=== PATIENT | male | born 1945 | race Caucasian/White ===

== ENCOUNTER 2025-08-02 05:57 | Observation (INO) ==
--- NOTE | 2025-08-02 06:13 | Emergency Department Note ---
Impression & Plan Dizziness, HTN (hypertension), Blood glucose elevated ED Provider Note NAME: ANDRES JORGENSEN AGE: 80 SEX: M : 1945 ARRIVES VIA: Walk-In INFORMANT: Patient ED PROVIDER(S): Conner Velazquez DO CHIEF COMPLAINT: Dizzy HPI: Patient is an 80-year-old male who presents to the ER for dizziness. Family present at bedside and provides additional history and notes that this started at 3 AM when he got up out of bed. Patient notes that it has been constant since then. Does not change with positions. He denies any chest pain or shortness of breath preceding or following this incident. He does admit to some cramping in the legs and believes that he is dehydrated. No belly pain. No nausea, vomiting or diarrhea. No dysuria, urgency or frequency. No other exacerbating or remitting factors that he can think of. He notes he still is dizzy at this time. He also still has some intermittent leg cramping bilaterally. ADDITIONAL HISTORY OBTAINED: Per HPI Chronic Medical/Social Conditions Affecting Care: Per HPI PAST MEDICAL HISTORY:See Below PAST SURGICAL HISTORY:See Below FAMILY HISTORY:See Below SOCIAL HISTORY:See Below HOME MEDICATIONS:See Below ALLERGIES:See Below VITALS:See Below PHYSICAL EXAMINATION: GENERAL: Sitting up in bed, alert, well appearing, well nourished, no distress, non-toxic EYE EXAM: normal conjunctiva. PERRL and EOM's intact. OROPHARYNX: no exudate, no erythema, lips, buccal mucosa, and tongue normal and mucous membranes are moist NECK: supple, no nuchal rigidity, no adenopathy, non-tender LUNGS: Clear to auscultation. Normal chest wall mechanics HEART: no murmurs, S1 normal and S2 normal ABDOMEN: abdomen soft, non-tender, normo-active bowel sounds, no masses, no rebound or guarding. BACK: Back is symmetrical on inspection and there is no deformity, no midline tenderness, no CVA tenderness. SKIN: no rashes and no bruising UPPER EXTREMITIES: upper extremities are grossly normal. LOWER EXTREMITIES: No pitting edema. NEURO EXAM: Normal sensorium, cranial nerves II-XII intact, normal speech, no weakness of arms, no weakness of legs. No drift. Finger to nose intact. Gross sensation intact. MEDICAL DECISION MAKING: Patient is an 80-year-old male who presents to the ER for dizziness. IV was established and blood work is obtained. Patient is neurologically intact but does have trouble ambulating. Labs show mild leukocytosis of 11,000. No significant anemia. BMP with mild hyponatremia 133. LFTs bilirubin and troponin was negative. Lipase was normal. UA was clean. Chest x-ray question some vascular congestion. CTAs as well as Noncon of the head showed some carotid stenosis. With this finding [facility] Patient was given IV fluids oral aspirin and Antivert while in the ER. Symptoms improved significantly. Dr. Trotter recommended admission aspirin and MRIs. Patient was updated at bedside. Discussed case with hospitalist for further evaluation management treatment. Consults/Care Managements Discussions: Per [facility] Triage Nursing notes reviewed. Limited review of prior medical records performed Vital Signs: reviewed and remarkable for HTN Differential diagnosis: Differential diagnosis includes etiologies such as benign positional vertigo, dehydration, hypovolemia, anemia, tumor, infection, hypoglycemia, electrolyte abnormalities, cardiac sources, intracerebral event, toxicologic, neurological, as well as others were entertained. ER treatment provided: See below Diagnostics interpreted by me include EKG and cardiac monitoring as listed below: -Cardiac Monitoring: An order was placed for continuous cardiac monitoring. The monitor shows a rate of 70 with sinus rhythm. -ECG: Sinus rhythm rate of 70 Normal axis No PVCs QTc 460 -Laboratory studies:Interpreted by me as stated above in MDM and shown below. Imaging studies: Xrays: As interpreted by me: Portable AP upright 1 view of the chest shows no focal M-Trate CTs show: CTs as described above Procedures:none Critical Care: None Past Med/Surg History Problem List (Updated 08/02/25 @ 10:35 by Delilah Carvajal PA-C) Cramp in lower leg associated with rest Hypertension Dizziness Social History Smoking Status: Former smoker Preferred Language: Moldovan Feels Safe at Home: Yes Allergies Allergies Allergy/AdvReac Type Severity Reaction Status Date / Time No Known Allergies Allergy Unverified 08/02/25 09:24 Home Meds Home Medications Medication Instructions Recorded Confirmed amlodipine 10 mg tablet 10 mg PO DAILY 08/02/25 08/02/25 latanoprost 0.005 % eye drops 1 drp ophthalmic (eye) QPM 08/02/25 08/02/25 (Xalatan) timolol maleate 0.5 % eye drops 1 drp ophthalmic (eye) QAM 08/02/25 08/02/25 Results & Data (ED) Vital Signs Vital Signs - 24 hr 08/02/25 06:00 08/02/25 06:21 08/02/25 06:32 Temperature 36.6 C Temperature Source Temporal Artery Scan Pulse Rate 71 68 60 Pulse Rate [Apical] Pulse Rhythm Regular Pulse Rhythm [Apical] Pulse Strength [Apical] Respiratory Rate 18 11 L Respiratory Effort / Characteristics Respiratory Depth Normal Respiratory Pattern Blood Pressure 177/84 H Blood Pressure [Right Arm] Blood Pressure Mean 115 Blood Pressure Mean [Right Arm] Blood Pressure Position [Right Arm] Pulse Oximetry 99 95 Oxygen Delivery Method Room Air Room Air Sepsis Recent Fever Within 48 Hours No Sepsis New/Unexplained Change in Mental Status N/A Sepsis Action Taken by Nursing No Action Required 08/02/25 06:37 08/02/25 07:00 08/02/25 09:00 Temperature Temperature Source Pulse Rate Pulse Rate [Apical] 62 70 66 Pulse Rhythm Pulse Rhythm [Apical] Regular Regular Regular Pulse Strength [Apical] Normal Respiratory Rate 13 14 15 Respiratory Effort / Characteristics Non-Labored Non-Labored Non-Labored Spontaneous Respiratory Depth Normal Normal Normal Respiratory Pattern Regular Regular Regular Blood Pressure Blood Pressure [Right Arm] 170/85 H 187/92 H 162/96 H Blood Pressure Mean Blood Pressure Mean [Right Arm] 113 123 118 Blood Pressure Position [Right Arm] Lying Pulse Oximetry 95 98 97 Oxygen Delivery Method Room Air Room Air Room Air Sepsis Recent Fever Within 48 Hours Sepsis New/Unexplained Change in Mental Status Sepsis Action Taken by Nursing 08/02/25 10:02 08/02/25 10:23 Temperature Temperature Source Pulse Rate 80 Pulse Rate [Apical] 72 Pulse Rhythm Pulse Rhythm [Apical] Pulse Strength [Apical] Respiratory Rate 20 Respiratory Effort / Characteristics Non-Labored Respiratory Depth Normal Respiratory Pattern Blood Pressure Blood Pressure [Right Arm] 175/96 H Blood Pressure Mean Blood Pressure Mean [Right Arm] 122 Blood Pressure Position [Right Arm] Pulse Oximetry 95 Oxygen Delivery Method Room Air Sepsis Recent Fever Within 48 Hours Sepsis New/Unexplained Change in Mental Status Sepsis Action Taken by Nursing Laboratory Data 08/02/25 06:13 08/02/25 06:13 Lab Results 08/02/25 08/02/25 08/02/25 Range/Units 06:13 06:16 Unknown WBC 11.59 H (4.8-10.8) K/ul RBC 5.03 (4.70-6.10) M/uL Hgb 15.0 (14.0-18.0) g/dl POC Hgb 16.0 (14.0-18.0) g/dl Hct 44.1 (42.0-52.0) % POC Hct 47 (42-52) % MCV 87.7 (80.0-100.0) fL MCH 29.8 (25.0-34.0) pg MCHC 34.0 (32.0-36.0) g/dL RDW Std Deviation 39.3 (36.4-46.3) fL RDW Coeff of Jennifer 12.3 (11.5-14.5) % Plt Count 205 (130-400) K/uL MPV 9.4 (9.4-12.4) fL Immature Gran % (Auto) 0.8 % Neut % (Auto) 63.3 % Lymph % (Auto) 28.0 % [place] % (Auto) 6.6 % Eos % (Auto) 1.1 % Baso % (Auto) 0.2 % Neut # (Auto) 7.34 H (1.40-6.50) K/uL Lymph # (Auto) 3.24 (1.20-3.40) K/uL [place] # (Auto) 0.77 H (0.11-0.59) K/uL Eos # (Auto) 0.13 (0.00-0.50) K/uL Baso # (Auto) 0.02 (0.00-0.20) K/uL Immature Gran # (Auto) 0.09 (0.01-0.20) K/uL POC Sodium 134 L (135-144) mmol/L Sodium 133 L (136-145) mmol/L POC Potassium 3.5 (3.3-5.0) mmol/L Potassium 3.5 (3.5-5.1) mmol/L POC Chloride 98 L (101-112) mmol/L Chloride 98 (98-107) mmol/L Carbon Dioxide 26 (21-32) mmol/L POC Total CO2 24 (24-31) mmol/L Anion Gap 9 (3-11) POC Anion Gap 16.0 (16-25) mmol/L POC BUN 23 H (7-18) mg/dl BUN 22 (6-23) mg/dl Creatinine 0.92 (0.6-1.4) mg/dl POC Creatinine 1.0 (0.6-1.3) mg/dl Est Cr Clr Drug Dosing Not Reportable eGFR 84.09 BUN/Creatinine Ratio 23.9 H (10-20) Glucose 164 H (70-99(Fasting)) mg/dl POC Glucose (other) 165 H (70-99) mg/dl Calcium 9.3 (8.6-10.3) mg/dl POC Ioniz Calcium Herbert 1.12 (1.12-1.32) mmol/l Magnesium 2.0 (1.7-2.4) mg/dl Total Bilirubin 0.4 (0.2-1.0) mg/dl AST 17 (13-39) U/L ALT 11 (7-52) U/L Alkaline Phosphatase 82 (34-104) U/L Troponin I High Sens 6.1 (0-20) pg/ml Total Protein 8.0 (6.0-8.3) gm/dl Albumin 4.5 (3.4-5.0) gm/dl Globulin 3.5 (2.5-4.0) gm/dl Albumin/Globulin Ratio 1.3 (0.9-2) Lipase 33 (11-82) U/L Urine Color Yellow Urine Appearance Clear (Clear) Urine pH 8.0 H (4.5-7.5) Ur Specific [place] 1.028 (1.000-1.030) Urine Protein Negative (Negative) Urine Glucose (UA) Negative (Negative) Urine Ketones Negative (Negative) Urine Blood Negative (Negative) Urine Nitrite Negative (Negative) Urine Bilirubin Negative (Negative) Urine Urobilinogen Negative (Negative) Ur Leukocyte Esterase Negative (Negative) Urine Comment Administered Medications Discontinued Medications Sodium Chloride (Nss) 1,000 mls @ 999 mls/hr IV .Q1H1M ONE Stop: 08/02/25 07:10 Last Infusion: 08/02/25 07:33 Dose: Infused Documented By: Admin: 08/02/25 06:14 Dose: 999 mls/hr Documented By: pamela Ioversol (Optiray 320 125ml) 120 ml IV ONCE ONE Stop: 08/02/25 06:43 Last Admin: 08/02/25 06:43 Dose: 120 ml Documented By: MAYRA Meclizine HCl (Meclizine Hcl 25 Mg Tab) 25 mg PO NOW STA Stop: 08/02/25 06:11 Last Admin: 08/02/25 06:14 Dose: 25 mg Documented By: lcd Imaging Data Radiologist's Impression: Chest X-Ray 08/02/25 06:05 EXAM: XR chest 1V portable CLINICAL HISTORY: Chest pain, nonspecific. TECHNIQUE: An X-ray image of the chest was obtained in the AP projection. COMPARISON: No prior studies are available for comparison. FINDINGS: Pulmonary Parenchyma: Bilateral prominent interstitial markings with hazy parenchyma and congested vasculature are present, presenting a picture suggestive of possible parenchymal disease, congestion, or edema, mainly in the lower zones bilaterally. There is no evidence of consolidation, collapse, or focal opacities. There is faint obliteration of the left CP angle, which could be due to basal atelectatic changes or pleural thickening. There is no evidence of pleural effusion or pleural thickening on the right side. Heart and Mediastinum: Cardiomegaly is present. There is no mediastinal widening or masses. There is no hilar or mediastinal lymphadenopathy. Bony Thorax: The bony thorax appears intact, without fractures or deformities. Sternotomy wires are noted. Soft Tissues: The soft tissues overlying the chest wall are unremarkable. IMPRESSION: 1. There are bilateral signs of pulmonary congestion or edema. 2. Another possibility is an atypical infectious process. 3. There is faint obliteration of the left CP angle, which could be due to basal atelectatic changes or pleural thickening. Electronically signed by Filipe Colby 08-02-2025 07:41 AM Head CTA 08/02/25 06:10 EXAM: CT angio head wo/w CLINICAL HISTORY: Dizzy. TECHNIQUE: Axial CT angiography of the head was performed without and with contrast, as well as sagittal and coronal reformats with MIP reconstructions. One of the following 3D techniques was utilized: Maximum Intensity Projection (MIP), 3D Reconstructed Images, Volume Rendered Images, or Surface Shaded Rendering. One of the following dose reduction techniques was utilized for this exam: automated exposure control, adjustment of the mA and/or kV according to patient size, or use of iterative reconstruction. DLP: 1160 mGy-cm, CTDI: 70 mGy. COMPARISON: None. FINDINGS: Intracranial Arteries: The intracranial portions of the internal carotid arteries, anterior cerebral arteries, middle cerebral arteries, posterior cerebral arteries, basilar artery, and vertebral arteries are well opacified. There is no evidence of aneurysm, stenosis, or occlusion. There are no significant atherosclerotic changes. There are mild atherosclerotic calcifications at both ICA siphons. [place]: The [place] is complete. There is normal caliber of the communicating arteries. There are no vascular malformations or aneurysms. Venous Structures: There is normal opacification of the major dural venous sinuses. There is no evidence of venous sinus thrombosis. Brain Parenchyma: There is mild accentuation of periventricular white matter hypodensity, suggesting chronic white matter ischemic changes. Otherwise, there is normal attenuation of the cerebral hemispheres, cerebellum, and brainstem. There is no evidence of acute infarct, hemorrhage, or mass effect. The sulci and fissures are prominent. Ventricular System: The ventricles are prominent. There is no evidence of hydrocephalus or ventricular enlargement. Skull and Meninges: There is normal appearance of the skull. There is no evidence of meningeal enhancement or thickening. Orbits: There is normal appearance of the globes, optic nerves, and extraocular muscles. There is no evidence of orbital masses or abnormal signal. IMPRESSION: 1. Normal CT angiography of the head. 2. There is no evidence of significant vascular abnormalities. There are no major vessel occlusions. 3. There are mild atherosclerotic calcifications at both ICA siphons. 4. There are age-related involutional brain changes. 5. 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 6. There is no acute hemorrhage or infarct. Electronically signed by Filipe Colby 08-02-2025 08:03 AM Neck CTA 08/02/25 06:10 EXAM: CT angio neck with con CLINICAL HISTORY: Dizzy TECHNIQUE: CT angiography study of the neck vessels with IV contrast was performed, and multiple axial sections were obtained with coronal and sagittal reconstructions. 120 cc Optiray 320 was administered. CTDI: mGy, DLP: mGy*cm. One of the following dose reduction techniques was utilized for this exam: automated exposure control, adjustment of the mA and/or kV according to patient size, and use of iterative reconstruction. One of these 3D techniques was utilized: maximum intensity pixel (MIP), 3D reconstructed images, volume-rendered images, or surface-shaded rendering. COMPARISON: None. FINDINGS: Carotid Arteries: The common carotid arteries, internal carotid arteries, and external carotid arteries bilaterally are well opacified. Atherosclerotic calcific plaques at the right carotid bulb are causing significant narrowing at the origin of the right internal carotid artery (about 75% stenosis); however, distally, the vessel is patent with normal contrast opacification. Mild atherosclerotic calcific plaques at the left carotid bulb are present with no significant narrowing. No evidence of significant aneurysm. Vertebral Arteries: The vertebral arteries bilaterally are well opacified. There is no evidence of significant stenosis, occlusion, or aneurysm. No significant atherosclerotic changes are noted. Jugular Veins: There is normal opacification of the internal and external jugular veins bilaterally. There is no evidence of thrombosis or compression. Subclavian Arteries: The subclavian arteries bilaterally are well opacified. There is no evidence of significant stenosis, occlusion, or aneurysm. Thyroid Gland: The thyroid gland is normal in size and morphology. There are no masses or nodules. Soft Tissues: There is a normal appearance of the surrounding soft tissues of the neck. There are no abnormal masses or lymphadenopathy. A few reactionary small nonspecific cervical lymph nodes with preserved fatty hilum are noted. Cervical Spine: Normal alignment is seen with mild degenerative changes of the cervical vertebrae. There are no fractures, lytic, or sclerotic lesions. Sternotomy sutures are noted. IMPRESSION: 1. Atherosclerotic calcific plaques at the right carotid bulb are causing significant narrowing at the origin of the right internal carotid artery (about 75% stenosis); however, distally, the vessel is patent with normal contrast opacification. 2. Mild atherosclerotic calcific plaques at the left carotid bulb are present with no significant narrowing. Electronically signed by Filipe Colby 08-02-2025 08:01 AM Discharge Plan Visit Data Chief Complaint: Vertigo Stated Complaint: DIZZY ED Provider: Conner Velazquez Discharge Problem: Dizziness, HTN (hypertension), Blood glucose elevated Condition: Fair Forms Stand Alone Forms: [employer] Prescriptions Prescriptions: No Action latanoprost [Xalatan] 0.005 % drops 1 drp ophthalmic (eye) QPM amlodipine 10 mg tablet 10 mg PO DAILY timolol maleate 0.5 % drops 1 drp ophthalmic (eye) QAM Referrals Referrals: PCP,NO [Primary Care Provider] - Discharge Problem: HTN (hypertension) Qualifiers: Hypertension type: unspecified Qualified Code(s): I10 - Essential (primary) hypertension
[2025-08-02] MEDS: MECLIZINE HCL 25 MG TAB PO STA (06:14)
[2025-08-02] MEDS: SODIUM CHLORIDE 0.9% 1,000 ML IV ONE (06:14)
[2025-08-02 06:28] LABS: Hematocrit (blood only) 44.1 % (42.0-52.0); Hemoglobin 15.0 g/dl (14.0-18.0); Immature Granulocytes # (auto) 0.09 K/uL (0.01-0.20); Immature Granulocytes % (auto) 0.8 %; Mean Corpuscular Hemoglobin 29.8 pg (25.0-34.0); Mean Corpuscular Volume 87.7 fL (80.0-100.0); Platelet Count 205 K/uL (130-400); RDW Standard Deviation 39.3 fL (36.4-46.3); Red Blood Count 5.03 M/uL (4.70-6.10); White Blood Count 11.59 K/ul (4.8-10.8)
[2025-08-02] MEDS: OPTIRAY 320 125ml IV ONE (06:43)
[2025-08-02 06:49] LABS: Alanine Aminotransferase 11 U/L (7-52); Albumin Level 4.5 gm/dl (3.4-5.0); Alkaline Phosphatase 82 U/L (34-104); Anion Gap 9 (3-11); Bilirubin,Total 0.4 mg/dl (0.2-1.0); Blood Urea Nitrogen 22 mg/dl (6-23); Calcium 9.3 mg/dl (8.6-10.3); Carbon Dioxide 26 mmol/L (21-32); Chloride 98 mmol/L (98-107); Glucose 164 mg/dl (70-99(Fasting)); Lipase 33 U/L (11-82); Potassium 3.5 mmol/L (3.5-5.1); Sodium 133 mmol/L (136-145)
[2025-08-02 07:04] LABS: Albumin Globulin Ratio 1.3 (0.9-2); Globulin 3.5 gm/dl (2.5-4.0); Total Protein 8.0 gm/dl (6.0-8.3)
[2025-08-02 07:41] LABS: Appearance Urine Clear (Clear); Glucose Urine UA Negative (Negative)
--- NOTE | 2025-08-02 07:41 | XRay Report ---
EXAM: XR chest 1V portable CLINICAL HISTORY: Chest pain, nonspecific. TECHNIQUE: An X-ray image of the chest was obtained in the AP projection. COMPARISON: No prior studies are available for comparison. FINDINGS: Pulmonary Parenchyma: Bilateral prominent interstitial markings with hazy parenchyma and congested vasculature are present, presenting a picture suggestive of possible parenchymal disease, congestion, or edema, mainly in the lower zones bilaterally. There is no evidence of consolidation, collapse, or focal opacities. There is faint obliteration of the left CP angle, which could be due to basal atelectatic changes or pleural thickening. There is no evidence of pleural effusion or pleural thickening on the right side. Heart and Mediastinum: Cardiomegaly is present. There is no mediastinal widening or masses. There is no hilar or mediastinal lymphadenopathy. Bony Thorax: The bony thorax appears intact, without fractures or deformities. Sternotomy wires are noted. Soft Tissues: The soft tissues overlying the chest wall are unremarkable. IMPRESSION: 1. There are bilateral signs of pulmonary congestion or edema. 2. Another possibility is an atypical infectious process. 3. There is faint obliteration of the left CP angle, which could be due to basal atelectatic changes or pleural thickening. Electronically signed by Filipe Colby 08-02-2025 07:41 AM
--- NOTE | 2025-08-02 08:01 | CT Scan Report ---
EXAM: CT angio neck with con CLINICAL HISTORY: Dizzy TECHNIQUE: CT angiography study of the neck vessels with IV contrast was performed, and multiple axial sections were obtained with coronal and sagittal reconstructions. 120 cc Optiray 320 was administered. CTDI: mGy, DLP: mGy*cm. One of the following dose reduction techniques was utilized for this exam: automated exposure control, adjustment of the mA and/or kV according to patient size, and use of iterative reconstruction. One of these 3D techniques was utilized: maximum intensity pixel (MIP), 3D reconstructed images, volume-rendered images, or surface-shaded rendering. COMPARISON: None. FINDINGS: Carotid Arteries: The common carotid arteries, internal carotid arteries, and external carotid arteries bilaterally are well opacified. Atherosclerotic calcific plaques at the right carotid bulb are causing significant narrowing at the origin of the right internal carotid artery (about 75% stenosis); however, distally, the vessel is patent with normal contrast opacification. Mild atherosclerotic calcific plaques at the left carotid bulb are present with no significant narrowing. No evidence of significant aneurysm. Vertebral Arteries: The vertebral arteries bilaterally are well opacified. There is no evidence of significant stenosis, occlusion, or aneurysm. No significant atherosclerotic changes are noted. Jugular Veins: There is normal opacification of the internal and external jugular veins bilaterally. There is no evidence of thrombosis or compression. Subclavian Arteries: The subclavian arteries bilaterally are well opacified. There is no evidence of significant stenosis, occlusion, or aneurysm. Thyroid Gland: The thyroid gland is normal in size and morphology. There are no masses or nodules. Soft Tissues: There is a normal appearance of the surrounding soft tissues of the neck. There are no abnormal masses or lymphadenopathy. A few reactionary small nonspecific cervical lymph nodes with preserved fatty hilum are noted. Cervical Spine: Normal alignment is seen with mild degenerative changes of the cervical vertebrae. There are no fractures, lytic, or sclerotic lesions. Sternotomy sutures are noted. IMPRESSION: 1. Atherosclerotic calcific plaques at the right carotid bulb are causing significant narrowing at the origin of the right internal carotid artery (about 75% stenosis); however, distally, the vessel is patent with normal contrast opacification. 2. Mild atherosclerotic calcific plaques at the left carotid bulb are present with no significant narrowing. Electronically signed by Filipe Colby 08-02-2025 08:01 AM
--- NOTE | 2025-08-02 08:03 | CT Scan Report ---
EXAM: CT angio head wo/w CLINICAL HISTORY: Dizzy. TECHNIQUE: Axial CT angiography of the head was performed without and with contrast, as well as sagittal and coronal reformats with MIP reconstructions. One of the following 3D techniques was utilized: Maximum Intensity Projection (MIP), 3D Reconstructed Images, Volume Rendered Images, or Surface Shaded Rendering. One of the following dose reduction techniques was utilized for this exam: automated exposure control, adjustment of the mA and/or kV according to patient size, or use of iterative reconstruction. DLP: 1160 mGy-cm, CTDI: 70 mGy. COMPARISON: None. FINDINGS: Intracranial Arteries: The intracranial portions of the internal carotid arteries, anterior cerebral arteries, middle cerebral arteries, posterior cerebral arteries, basilar artery, and vertebral arteries are well opacified. There is no evidence of aneurysm, stenosis, or occlusion. There are no significant atherosclerotic changes. There are mild atherosclerotic calcifications at both ICA siphons. [place]: The [place] is complete. There is normal caliber of the communicating arteries. There are no vascular malformations or aneurysms. Venous Structures: There is normal opacification of the major dural venous sinuses. There is no evidence of venous sinus thrombosis. Brain Parenchyma: There is mild accentuation of periventricular white matter hypodensity, suggesting chronic white matter ischemic changes. Otherwise, there is normal attenuation of the cerebral hemispheres, cerebellum, and brainstem. There is no evidence of acute infarct, hemorrhage, or mass effect. The sulci and fissures are prominent. Ventricular System: The ventricles are prominent. There is no evidence of hydrocephalus or ventricular enlargement. Skull and Meninges: There is normal appearance of the skull. There is no evidence of meningeal enhancement or thickening. Orbits: There is normal appearance of the globes, optic nerves, and extraocular muscles. There is no evidence of orbital masses or abnormal signal. IMPRESSION: 1. Normal CT angiography of the head. 2. There is no evidence of significant vascular abnormalities. There are no major vessel occlusions. 3. There are mild atherosclerotic calcifications at both ICA siphons. 4. There are age-related involutional brain changes. 5. 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 6. There is no acute hemorrhage or infarct. Electronically signed by Filipe Colby 08-02-2025 08:03 AM
--- NOTE | 2025-08-02 09:43 | History & Physical Report ---
Date of Service August 02, 2025 Assessment & Plan (1) Dizziness: (2) Cramp in lower leg associated with rest: (3) Hypertension: Plan Adrian is an 80-year-old male with past medical history of hypertension, open-angle glaucoma, two-vessel CABG in 2020, osteoarthritis of bilateral knees. He presented to the ED due to dizziness that began around 0300 the morning of admission. Also with leg cramping that began morning of admission and 1 episode of nausea with vomiting prior to arrival when dizziness was most prominent. Workup in the ED revealed about 75% stenosis at the origin of the right internal carotid artery. Patient's [id number]-[id number] reports he had a 69% stenosis of the right ICA in 2020 that was stable for 2 years. ED physician discussed with [facility] neurology who saw and evaluated the patient and recommended admission to complete stroke workup. He was admitted for further workup and management of his dizziness. #Dizziness - acute onset of dizziness AM of admission. Described as room spinning sensation - Suspect vertigo, but given his 75% right ICA stenosis, he is at risk of TIA/stroke - Head CTA unremarkable. Neck CTA notes about 75% stenosis at the origin of the right internal carotid artery, distally the vessel is patent - Neurology consulted and recommended stroke workup - Brain MRI ordered. Ativan 0.25 mg x 1 ordered prior to MRI for claustrophobia - Echocardiogram ordered - ACBCD2 score of 4, moderate risk (for age, BP, duration of symptoms) - will defer DAPT at this time. With his ICA stenosis, he would benefit from daily baby aspirin. We discussed this, but patient prefers to hold off at this time until brain MRI results - Orthostatic VS ordered - COVID/flu/RSV ordered - PT/OT consulted - Meclizine 25 mg TID PRN dizziness/vertigo - Lipid panel, A1c, TSH with a.m. labs #Leg cramping - started morning of admission. Most prominent when waking up from sleep - Suspect multifactorial between exercise-induced muscle fatigue and dehydration. Was reportedly very active at the [employer] game day prior to admission - Symmetrical calf diameters bilaterally. No unilateral calf tenderness. No peripheral edema - Magnesium WNL - S/p 1 L NSS. Appears euvolemic with moist mucous membranes. Deferred on further IVF. Encourage oral hydration #Hypertension - continue amlodipine 10 mg daily #Open-angle glaucoma - continue timolol maleate 1 drop OP QAM, Latanoprost 1 drop OP HS VTE PPx: Lovenox Dispo: Observation on med/tele Updated and [id number] at bedside on admission History of Present Illness Chief Complaint: Dizziness Primary Care Provider: SUKHDEEP PCP Adrian is a pleasant 80-year-old man with past medical history of hypertension, open-angle glaucoma, two-vessel CABG in 2020, osteoarthritis of bilateral knees. He is from [facility], currently visiting [place] for the [employer] football game. He presented with acute onset of dizziness. At the time of my exam, the patient was lying in bed in no acute distress with his and [id number] present. He states he was woken up from his sleep around 0300 this morning due to a cramp in his right leg. He then got up to use the restroom and felt like the room was spinning around him. He had 1 episode of vomiting due to this dizziness. He denies any dizziness while resting in bed currently. He denies recent sick symptoms including headache, cough, congestion, abdominal pain, diarrhea, urinary symptoms. He denies chest pain or shortness of breath. Denies ongoing nausea or vomiting since his episode of vomiting earlier this morning. Patient reports that he took all of his regular morning medications today prior to arrival; no recent change in medications. He does not use supplemental oxygen at baseline. No CPAP at night. He denies tobacco or illicit drug use. He drinks socially, 1 beer or glass of wine every few weeks. 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 Vitals on admission significant for elevated BP at 175/96; vitals otherwise stable. Labs on admission are significant for mild leukocytosis with WBC 11.59, mild hyponatremia with sodium 133, elevated glucose at 164. No anemia present. Renal function WNL. Liver enzymes WNL. Troponin negative at 6.1. UA negative. CXR on admission reveals bilateral signs of pulmonary congestion or edemaanother possibility is an atypical infectious process, there is faint obliteration of the left CP angle which could be due to basal atelectatic changes or pleural thickening. Head CTA unremarkable. Neck CTA notes atherosclerotic calcific plaques at the right carotid bulb are causing significant narrowing at the origin of the right internal carotid artery (about 75% stenosis); however, distally, the vessel is patent with normal contrast opacification. Also notes mild atherosclerotic calcific plaques at the left carotid bulb are present with no significant narrowing. We discussed code status, patient wishes to be a full code. Allergies Allergy/AdvReac Type Severity Reaction Status Date / Time No Known Allergies Allergy Unverified 08/02/25 09:24 Home Medications Medication Instructions Recorded Confirmed Type amlodipine 10 mg tablet 10 mg PO DAILY 08/02/25 08/02/25 History latanoprost 0.005 % eye drops 1 drp ophthalmic (eye) QPM 08/02/25 08/02/25 History (Xalatan) timolol maleate 0.5 % eye drops 1 drp ophthalmic (eye) QAM 08/02/25 08/02/25 History Past Med/Surg History Problem List (Updated 08/02/25 @ 10:35 by Delilah Carvajal PA-C) Cramp in lower leg associated with rest Hypertension Dizziness Social History Smoking Status: Never smoker Hx Alcohol Use: Yes Alcohol type: beer, wine and hard liquor Hx Substance Use: No Preferred Language: Croatian [employer] Required: No Beliefs That Will Affect Care: None Current Living Situation: Spouse Feels Safe at Home: Yes Assistive Devices: Glasses and Hearing Aid - Bilateral Review of Systems Review of Systems: All systems reviewed & are unremarkable except as noted in HPI & below Physical Exam Physical Exam: General: No acute distress, nondiaphoretic, well-developed, well-nourished. Skin: Warm, dry. No rashes or peripheral edema noted. HEENT: PERRLA. No nystagmus noted. Moist mucous membranes. Cardiac: Regular rate and rhythm without murmurs gallops or rubs. Pulm: Clear to auscultation bilaterally without wheezes, rales or rhonchi. Normal respiratory effort. 95% on room air. Abdominal: Soft, nontender, nondistended. Bowel sounds present. Extremities: Symmetrical calf diameters bilaterally. No unilateral calf tenderness noted. Neuro: A&O x3. Normal strength and sensation in upper and lower extremities bilaterally. Izawtn-dj-ysyg intact. No drift. No focal neurological deficits. Results & Data Results & Data Vital Signs (Past 12 Hours) Vital Signs Temp Pulse Pulse Resp BP BP Pulse Ox 08/02/25 09:00 66 15 162/96 H 97 08/02/25 07:00 70 14 187/92 H 98 08/02/25 06:37 62 13 170/85 H 95 08/02/25 06:32 60 11 L 95 08/02/25 06:21 68 08/02/25 06:00 97.9 F 71 18 177/84 H 99 O2 Del Method 08/02/25 09:00 Room Air 08/02/25 07:00 Room Air 08/02/25 06:37 Room Air 08/02/25 06:32 Room Air 08/02/25 06:21 08/02/25 06:00 Room Air Laboratory Results Reviewed CBC with differential Reviewed CMP, chemistries Reviewed UA Diagnostic Findings Reviewed CXR, head CTA, neck CTA, EKG Supervising Physician Co-Signing Physician Notes Patient seen and examined, chart reviewed, case discussed with Delilah Carvajal PA-C and I agree with the assessment and plan as above except as otherwise noted Labs and images reviewed 80-year-old male with history of hypertension, CABG, OA who presented with dizziness with a room spinning quality and with 1 episode of nausea/vomiting which resolved. 70% right ICA stenosis. Patient was evaluated by stroke neurology while in the ER, was recommended for admission to complete stroke evaluation. Differential includes vertigo and orthostasis. CTA head unremarkable. MRI is pending. Moderate risk by ABCD2 score. Moves all extremities equally, RRR, CTAB, vision/hearing grossly intact without nystagmus, no lower extremity edema. Adrian was seen at the bedside with his family present. He reports that the episode was a severe room spinning and subsequent nausea and an episode of vomiting. He has continued to have some intermittent nausea throughout the day, and he does not think that the spinning has been as intense. When asked if he still has any of the room spinning quality he reports he is not sure, but nausea has come and go and seems to be improved with the medications. He had a dose of meclizine earlier this morning. He reports he was in the sun for prolonged period of time and might have been a little bit dehydrated. He has not been hypotensive or tachycardic. MRIbrain does not show signs of an acute stroke. He does have a progressive right ICA stenosis. Was able to review some of his outside records via his phone portal. He has a history of CABG, LDL is not at goal 120s. He is currently only taking amlodipine. Previously was prescribed aspirin and statin therapy. He reports that when he was on a baby aspirin in the past he had nuisance bleeding easy bruising and very fine bleeding from his hair follicles and scalp. He reports he did not have any life-threatening bleeding, and never needed a blood tr ansfusion or hospitalization for this. He reports he did have some nuisance bleeding from hemorrhoids in the past. He is platelet count is 205, and was not suppressed on his prior blood work either. His brother had severe bleeding around thoracic surgery; however Adrian did well with his bypass with no bleeding complications at the time. He reports he has some reservations about aspirin due to easy bruising before. We had an extensive discussion on the risk/benefits of aspirin. Discussed that the risk of bleeding is generally low, although nuisance bleeding and easy bruising is common. Serious bleeding can occur in the form of GI bleeding/internal bleeding, nose bleeds and very rarely a intracranial bleed. Discussed that intracranial bleeding is very rare, and most GI/internal bleeding/hemorrhoid bleeding is nuisance bleeding which can be supported with blood transfusion and while any severe bleeding can be life- threatening or fatal this is generally rare. On the other hand he has known vascular disease, with a progressive greater than 70% right ICA stenosis and a history of cardiac bypass. Reviewed his last A1c and he is also prediabetic. I have a low suspicion that his current symptoms are truly TIA as he has had continued nausea and possible some spinning and despite this he has a negative CVA and a TIA should have either completely resolved or if he had a posterior stroke should have seen this on the MRI. Nonetheless he has multiple risk factors for heart disease and stroke and would generally recommend a baby aspirin. Did offer that if he had high concerns and again not knowing his complete medical history as we do not have records available would not be unreasonable to wait for short interval follow-up with his sociology adjunct instructor/PCP this coming week if he wanted a further discussion with providers and use history well. On shared decision making he feels that if he is going to have any bleeding he would rather it happen while in the hospital anyway, and would like to start aspirin 81 mg daily. Furthermore discussed his lipid management. He has LDL above goal and a history of both carotid artery disease and bypass. Ideally would target LDL goal of less than 70, or at least less than 100 and he has been above this on outside records. Unfortunately reconciliation of his 2023 records from pharmacy show that he was on rosuvastatin. He reports that while on a statin he developed severe muscle aches and myalgias. He reports they were so severe that he was not able to walk or move and spread over his whole body. 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 As the dose I can see prescribed was rosuvastatin 5 mg I am not optimistic that an alternative statin will be tolerated any better, and pravastatin is unlikely to meet his cholesterol goals. He was prescribed Zetia at 1 point but he is not sure if he stopped this from side effects or did not take it, he thinks that he may just not have taken this. He will discuss this with his sociology adjunct instructor on follow-up and target this as a cholesterol option. If he is not able to tolerate Zetia or any statin therapy did discuss that he could consider PCSK9/Repatha therapy as an outpatient although this is difficult to get covered and is often only in extreme cases when all other options have been exhausted but certainly can be discussed with his sociology adjunct instructor. At this time we will not start any lipid-lowering therapy as I do not have records available and cannot clarify his reactions further. He is pending PT/OT evaluation in the morning with reevaluation of his vertiginous symptoms, will monitor overnight for any signs of bleeding, and hopefully discharge in the morning if doing well. Will need records CCed to both his sociology adjunct instructor and PCP. No further questions from Adrian or his family at time of bedside visit. PG Care Time/CCT Total # of Minutes Spent Total Time Spent with Patient: Total time spent is greater than 50% in coordination of care (as documented) at patient's floor/unit and/or counseling patient: Coding Level of Care Code 04969 INT INP/OBS CARE 3/75MIN Diagnoses Dizziness R42 Cramp in lower leg associated with rest R25.2 Hypertension I10
[2025-08-02 10:06] LABS: Magnesium 2.0 mg/dl (1.7-2.4)
[2025-08-02] MEDS: ASPIRIN CHEW 324 MG PO STA (11:02)
[2025-08-02] MEDS: LORazepam 1 MG/1 ML SYR ED Inj Use IV STA (11:02)
--- NOTE | 2025-08-02 11:56 | Magnetic Resonance Report ---
MRI OF THE BRAIN WITHOUT IV CONTRAST CLINICAL HISTORY: Dizziness. Vomiting. COMPARISON STUDY: Head CT and CTA of the head performed earlier today. TECHNIQUE: MRI of the brain was performed utilizing various T1 and T2-weighted sequences in the axial , sagittal, and coronal planes. IV contrast was not administered for this examination. FINDINGS: There are no foci of restricted diffusion to suggest acute infarct. No acute intracranial h emorrhage, midline shift or mass effect is present. Mild ventricular dilatation is likely due to atro phy. Basal cisterns are patent. There are no extra axial collections. Scattered small white matter T2 hyperintense foci suggest mild small vessel disease. No intracranial masses are identified on unenha nced exam. There are no calvarial lesions. There is minimal sinus mucosal thickening without evidence for acute sinusitis. IMPRESSION: 1. No acute intracranial findings. 2. Mild atrophy and small vessel disease. ACT 112: Negative or not required by law. Electronically signed by: Westley Alaniz M.D. 08/02/2025 11:53 AM
[2025-08-02] MEDS: ONDANSETRON INJ 2 MG/ML 2 ML VIAL IV STA (12:07)
[2025-08-02] MEDS ORDERED: POLYETHYLENE (MIRALAX) 17 GM PACK PO PRN (12:54)
[2025-08-02] MEDS ORDERED: MECLIZINE HCL 25 MG TAB PO PRN (12:54)
[2025-08-02] MEDS ORDERED: ALUMINUM/MAGNESIUM SUSP 30 ML UDC PO PRN (12:54)
[2025-08-02 15:20] LABS: Influenza A virus by PCR Negative (Neg); Influenza B virus by PCR Negative (Neg); SARS CoV2 RNA(COVID-19) Ceph NEGATIVE (Negative)
[2025-08-02] MEDS: ONDANSETRON INJ 2 MG/ML 2 ML VIAL IV PRN (16:47)
[2025-08-02] MEDS: ACETAMINOPHEN 325 MG TAB PO PRN (16:47)
[2025-08-02] MEDS: ASPIRIN 81 MG ECTAB PO SCH (19:44)
[2025-08-02] MEDS: DICLOFENAC SOD 1% GEL 100 GM TUBE EXT SCH (20:45)
[2025-08-02] MEDS: MAGNESIUM SULFATE / D5W 1 GM/100 ML BAG IV SCH (20:46)
[2025-08-02] MEDS: LATANOPROST 0.005% OP SOLN 2.5 ML BTL OP SCH (21:48)
[2025-08-02] MEDS: FAMOTIDINE 40 MG TABLET PO ONE (22:54)
[2025-08-03] MEDS: ENOXAPARIN INJ 40 MG/0.4 ML SYR SQ SCH (07:39)
[2025-08-03] MEDS: TIMOLOL MALEATE 0.5% OP SOLN 5 ML BTL OP SCH (07:40)
[2025-08-03 07:51] VITALS: RESP 18
[2025-08-03 10:07] LABS: Hematocrit (blood only) 41.7 % (42.0-52.0); Hemoglobin 14.5 g/dl (14.0-18.0); Mean Corpuscular Hemoglobin 30.7 pg (25.0-34.0); Mean Corpuscular Volume 88.2 fL (80.0-100.0); Platelet Count 230 K/uL (130-400); RDW Standard Deviation 40.2 fL (36.4-46.3); Red Blood Count 4.73 M/uL (4.70-6.10); White Blood Count 10.04 K/ul (4.8-10.8)
[2025-08-03 10:24] LABS: Hemoglobin A1C 6.2 % (4.5-5.6)
[2025-08-03 10:58] LABS: Anion Gap 6.0 (3-11); Blood Urea Nitrogen 19.0 mg/dl (6-23); Calcium 9.2 mg/dl (8.6-10.3); Carbon Dioxide 29.0 mmol/L (21-32); Chloride 101.0 mmol/L (98-107); Cholesterol 185.0 mg/dl (0-200); Creatinine Clr Calc Pharmacy 54.5 ml/min; Glucose 128.0 mg/dl (70-99(Fasting)); HDL Cholesterol 42.0 mg/dl; Potassium 4.4 mmol/L (3.5-5.1); Sodium 136.0 mmol/L (136-145); Thyroid Stimulating Hormone 4.176 uIu/ml (0.300-4.500); Triglycerides 177.0 mg/dl (0-150)
[2025-08-03 11:19] VITALS: TEMP 98.3; O2SAT 95
[2025-08-03 14:57] VITALS: BP 130/77
[2025-08-03 15:20] VITALS: PULSE 54
--- NOTE | 2025-08-03 17:21 | Discharge Summary ---
Discharge Summary Date of Service August 03, 2025 Principal Dx & Hospital Course #1 = Principal Diagnosis (1) Dizziness: (2) Cramp in lower leg associated with rest: (3) Hypertension: Williams Campbell is an 80-year-old male with past medical history of hypertension, open-angle glaucoma, two-vessel CABG in 2020, osteoarthritis of bilateral knees. He presented to the ED due to dizziness that began around 0300 the morning of admission. Also with leg cramping that began morning of admission and 1 episode of nausea with vomiting prior to arrival when dizziness was most prominent. Workup in the ED revealed about 75% stenosis at the origin of the right internal carotid artery. Patient's yzimltjj-vx-okh reports he had a 69% stenosis of the right ICA in 2020 that was stable for 2 years. ED physician discussed with [facility] who saw and evaluated the patient and recommended admission to complete stroke workup. He was admitted for further workup and management of his dizziness. Patient underwent telehealth consultation with [facility] (NIH-0) and negative brain MRI and CT angio of neck with atherosclerotic calcific plaques at the right carotid bulb causing significant narrowing at the origin of the right ICA (about 75% stenosis). Recommendation per [facility] for daily baby aspirin regimen. Patient from [place] and in [facility] due to [employer] football game-there is time sensitivity concerns with discharge for him due to commute time back home. TTE pending at time of discharge. As there is not a concrete read on TTE with this diagnostic test pending and possible findings as contributory finding r/t dizziness patient requesting to leave hospital prior to butadiene converter helper read and will leaving AMA. Discussed at length with patient, and nuamxpqg-jr-wol importance of close f/u on discharge with cardiology and PCP within 1-2 weeks regarding lipid profile results and CT angio of neck imaging results as he may need referral to vascular surgeon. #Dizziness - acute onset of dizziness AM of admission. Described as room spinning sensation. On day of discharge, dizziness resolved and not producible with walking as verbalized with history. -Suspect vertigo, but given his 75% right ICA stenosis, he is at risk of TIA/stroke -Head CTA unremarkable. Neck CTA notes about 75% stenosis at the origin of the right internal carotid artery, distally the vessel is patent -Neurology consulted and recommended stroke workup -Brain MRI with no intracranial findings, mild atrophy and small vessel disease -Echocardiogram pending on discharge -ACBCD2 score of 4, moderate risk (for age, BP, duration of symptoms) - will defer DAPT at this time. With his ICA stenosis, he would benefit from daily baby aspirin . -COVID/flu/RSV negative -PT/OT consulted, no Sha as patient was without dizziness on eval -Meclizine 25 mg TID PRN dizziness/vertigo, provided prescription for 6 tablets on d/c -LDL 108, TSH normal, A1C 6.2 -d/c with high recommendation to start daily baby aspirin at 81mg secondary to CT angio neck findings -d/c with close f/u with PCP and outside butadiene converter helper in [place] (Dr. Munoz) for decision making regarding LDL goal and treatment options for lipid control as he has not tolerated statins/possible Zetia in the past #Leg cramping - started morning of admission. Most prominent when waking up from sleep. Absent on day of discharge-states he does experience leg cramping periodically at baseline. - Suspect multifactorial between exercise-induced muscle fatigue and dehydration. Was reportedly very active at the [employer] day prior to admission - Symmetrical calf diameters bilaterally. No unilateral calf tenderness. No peripheral edema. - Magnesium 2.0 #Hypertension -continue amlodipine 10 mg daily on d/c #Open-angle glaucoma -continue timolol maleate 1 drop OP QAM, Latanoprost 1 drop OP HS on d/c VTE PPx: Lovenox Dispo: AMA d/c Admission HPI Per Admitting Provider Adrian is a pleasant 80-year-old man with past medical history of hypertension, open-angle glaucoma, two-vessel CABG in 2020, osteoarthritis of bilateral knees. He is from [place], currently visiting [place] for the [employer] game. He presented with acute onset of dizziness. At the time of my exam, the patient was lying in bed in no acute distress with his and aycgzdoz-ic-rfd present. He states he was woken up from his sleep around 0300 this morning due to a cramp in his right leg. He then got up to use the restroom and felt like the room was spinning around him. He had 1 episode of vomiting due to this dizziness. He denies any dizziness while resting in bed currently. He denies recent sick symptoms including headache, cough, congestion, abdominal pain, diarrhea, urinary symptoms. He denies chest pain or shortness of breath. Denies ongoing nausea or vomiting since his episode of vomiting earlier this morning. Patient reports that he took all of his regular morning medications today prior to arrival; no recent change in medications. He does not use supplemental oxygen at baseline. No CPAP at night. He denies tobacco or illicit drug use. He drinks socially, 1 beer or glass of wine every few weeks. 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 Vitals on admission significant for elevated BP at 175/96; vitals otherwise stable. Labs on admission are significant for mild leukocytosis with WBC 11.59, mild hyponatremia with sodium 133, elevated glucose at 164. No anemia present. Renal function WNL. Liver enzymes WNL. Troponin negative at 6.1. UA negative. CXR on admission reveals bilateral signs of pulmonary congestion or edemaanother possibility is an atypical infectious process, there is faint obliteration of the left CP angle which could be due to basal atelectatic changes or pleural thickening. Head CTA unremarkable. Neck CTA notes atherosclerotic calcific plaques at the right carotid bulb are causing significant narrowing at the origin of the right internal carotid artery (about 75% stenosis); however, distally, the vessel is patent with normal contrast opacification. Also notes mild atherosclerotic calcific plaques at the left carotid bulb are present with no significant narrowing. We discussed code status, patient wishes to be a full code. Discharge Exam GENERAL APPEARANCE: A&O. Sitting comfortably in bed. NAD. SKIN: Normal color without rashes or lesions. Normal turgor. HEENT: Head AT/NC. Buccal mucosa is moist and pink. NECK: No jugular venous distention. No thyroid enlargement. There is no lymphadenopathy. HEART: RRR without m/g/r LUNGS: Normal inspiratory effort. CTA without w/r/r ABDOMEN: No guarding or rigidity. Normoactive BS in all four quadrants. Abdomen soft and NT. MSK: No bony gross/deformities throughout. ROM intact. EXTREMITIES: No edema, No peripheral cyanosis. Neuro: CN 2-12 grossly intact. No focal neuro deficits PSYCHIATRIC: Normal affect. Eye contact is good. Speech is normal rate and content. Responses are appropriate. Discharge Plan Discharge Items Patient Disposition: Against Medical Advice Reason For Visit: DIZZINESS Discharge Diagnosis: Dizziness Condition on Discharge: Fair Activity: Resume your previous activity Driving/Machine Use: No limitations Weightbearing: Full weightbearing Non-emergency contact: Primary Care Provider Call non-emergency contact if: you have any medication questions and your symptoms worsen Follow-up/Referrals: Willy Munoz [Other] - 08/10/25 (Case management will be calling to secure a follow up appointment with your cardiology provider) PCP,SUKHDEEP [Primary Care Provider] - 08/10/25 (Please follow up with PCP (Dr. Chan) within one week of your discharge from the hospital) Diet: Heart Healthy Addtl Attending Provider Instructions: Mr. Pulliam, You were admitted to the hospital for dizziness. You underwent an evaluation with the telehealth stroke team from [facility]. You had a brain MRI which showed no sign of an acute stroke and you also had a CT scan of the arteries in your neck which revealed a narrowing of the artery on the right side. It is recommended you follow up closely with your family doctor and butadiene converter helper at discharge within a one week time frame for further evaluation and to address your cholesterol management. You may also need a referral to a vascular surgeon to monitor the narrowing of the carotid artery in the right side of your neck. Your LDL cholesterol lab level was at 108 and with your noted history of heart disease requiring coronary artery bypass grafting in the past, it is recommended this level be at goal of <70. You have tried medications in the past which you were not able to tolerate due to muscle aches, but you may be a candidate for a nother injectable medication. It is also being recommended you take a baby aspirin daily at 81mg to help prevent a stroke or mini stroke in the future for primary prevention. You can purchase this over the counter. You are leaving against medical advice as you have a pending echocardiogram that has not been read yet at the time of discharge. Medications: Your medication list has been reviewed and reconciled upon discharge to ensure accuracy and continuity of care. An updated list of all your medications is included with your hospital discharge paperwork. Please review this list closely, and make note of any changes. We sent a new medication called Meclizine to your pharmacy. Take Meclizine three times a day as needed for dizziness. This medication may cause drowsiness and increase your risk of falling so please be cautious when taking. Take your medications as instructed; do not skip a dose of your medicines. Make sure all of your doctors know every medicine you are taking (including brqx-xjb-hiajxnx medicines, vitamins, and supplements). Call your primary care provider before taking any new medicines (including over- the-counter medicines, vitamins, and supplements), because some of these may interact with your current medications, or may make your symptoms worse. Tell your primary care provider if you cannot afford your medications. Activity: You can do normal everyday activities as your body allows. Take rest breaks if you feel tired. Do not overexert. Stop activity if you have pain, shortness of breath or feel dizzy. Follow-up appointments: Make an appointment with your primary care physician within one week of discharge. A copy of this summary will be sent to them. Every time you see your primary care physician, or any other doctor, bring your medication list, and a list of questions. CONTACT YOUR PRIMARY CARE PROVIDER if you experience any of the following: Shortness of breath or difficulty breathing Fevers or chills Feeling tired with normal activity or experiencing dizziness or fainting Difficulty following your treatment plan, or difficulty taking medications CALL 911 OR GO TO THE EMERGENCY DEPARTMENT if you experience any of the following: Severe abdominal pain or nausea/vomiting Severe chest pain, or chest pain that radiates (moves) to your jaw or arm Sudden, severe shortness of breath or difficulty breathing Persistent dizziness, difficulty talking, weakness of your arms or legs, inability to walk or passing out episodes Thank you for allowing us to participate in your care. Pending Studies at Discharge: No Studies:: Echocardiogram Stand-Alone Forms: My [employer], Smoking Cessation Skilled Items Patient informed of condition?: Yes DNR: No Discharge Prognosis: Stable Medications and DC Order Prescriptions: New meclizine 25 mg Tablet 25 mg PO TID PRN (Reason: dizziness) Qty: 6 0RF Continued latanoprost [Xalatan] 0.005 % drops 1 drp ophthalmic (eye) QPM amlodipine 10 mg tablet 10 mg PO DAILY timolol maleate 0.5 % drops 1 drp ophthalmic (eye) QAM Discharge Orders: Left Against Medical Advice (Routine); Ordered 08/03/25 Ordered By: Ara Contreras/Other Patient Handouts: Prediabetes, 5 Steps for Eating Healthier Admission Data Admit Date/Time: 08/02/25 10:23 Attending Provider: Temo Polanco Admit Provider: Angel Rogers Primary Care Provider: PCP,NO Other Providers: Angel Rogers Other Interventions: Discharge Summary Assessment (RN) Last Done: 08/03/25 14:56 Hospital Stay Data Consultations 08/02/25 09:42 ED Decision to Admit Stat Diagnostic Imagining Performed 08/02/25 06:10 CT angio head wo/w Stat CT angio neck with con Stat 08/02/25 10:23 MR brain wo con Stat Pending Results Patient Have Any Pending Studies at Discharge: No Discharge Instructions Given to Patient (Per Discharging Provider) Dave Marshall were admitted to the hospital for dizziness. You underwent an evaluation with the telehealth stroke team from [facility]. You had a brain MRI i ch showed no sign of an acute stroke and you also had a CT scan of the arteries in your neck which revealed a narrowing of the artery on the right side. It is recommended you follow up closely with your family doctor and butadiene converter helper at discharge within a one week time frame for further evaluation and to address your cholesterol management. You may also need a referral to a vascular surgeon to monitor the narrowing of the carotid artery in the right side of your neck. Your LDL cholesterol lab level was at 108 and with your noted history of heart disease requiring coronary artery bypass grafting in the past, it is recommended this level be at goal of <70. You have tried medications in the past which you were not able to tolerate due to muscle aches, but you may be a candidate for another injectable medication. It is also being recommended you take a baby aspirin daily at 81mg to help prevent a stroke or mini stroke in the future for primary prevention. You can purchase this over the counter. You are leaving against medical advice as you have a pending echocardiogram that has not been read yet at the time of discharge. Medications: Your medication list has been reviewed and reconciled upon discharge to ensure accuracy and continuity of care. An updated list of all your medications is included with your hospital discharge paperwork. Please review this list closely, and make note of any changes. We sent a new medication called Meclizine to your pharmacy. Take Meclizine three times a day as needed for dizziness. This medication may cause drowsiness and increase your risk of falling so please be cautious when taking. Take your medications as instructed; do not skip a dose of your medicines. Make sure all of your doctors know every medicine you are taking (including hvwm-pln-bsfsdkt medicines, vitamins, and supplements). Call your primary care provider before taking any new medicines (including over- the-counter medicines, vitamins, and supplements), because some of these may interact with your current medications, or may make your symptoms worse. Tell your primary care provider if you cannot afford your medications. Activity: You can do normal everyday activities as your body allows. Take rest breaks if you feel tired. Do not overexert. Stop activity if you have pain, shortness of breath or feel dizzy. Follow-up appointments: Make an appointment with your primary care physician within one week of discharge. A copy of this summary will be sent to them. Every time you see your primary care physician, or any other doctor, bring your medication list, and a list of questions. CONTACT YOUR PRIMARY CARE PROVIDER if you experience any of the following: Shortness of breath or difficulty breathing Fevers or chills Feeling tired with normal activity or experiencing dizziness or fainting Difficulty following your treatment plan, or difficulty taking medications CALL 911 OR GO TO THE EMERGENCY DEPARTMENT if you experience any of the following: Severe abdominal pain or nausea/vomiting Severe chest pain, or chest pain that radiates (moves) to your jaw or arm Sudden, severe shortness of breath or difficulty breathing Persistent dizziness, difficulty talking, weakness of your arms or legs, inability to walk or passing out episodes Thank you for allowing us to participate in your care. Total Time Total Time Spent Total Time Spent (In Minutes): I spent a total of 50 minutes on the date of service in review of patient's record, and previously obtained information in person and appropriate medical visit, discussion and education of plan, with patient and/or caregiver, placing orders for tests/referral/procedures as medically necessary and documentation of pertinent clinical information in patient's medical records for their visit today. Coding Level of Care Code 12487 INP/OBS DISCH >30 MIN Diagnoses Dizziness R42 Cramp in lower leg associated with rest R25.2 Hypertension I10
--- NOTE | 2025-08-03 23:08 | XCELERA ---
[id number]
== END 2025-08-03 17:05 | disposition left against medical advice (07) ==
LOC: ED 05:57 → 2N 05:57 → SUATTDRO 10:23 → 2N 12:11